=== PATIENT | male | born 1955 | race Caucasian/White ===

== ENCOUNTER → 2019-08-30 13:50 | Outpatient (CLI) | payer BC, SELFPAY ==
--- NOTE | ~2019-08-30 | XR_ITS ---
EXAMINATION: XR chest 2V EXAM DATE: 08/30/2019 13:59 INDICATION: Cough. TECHNIQUE: Frontal and lateral projections of the chest obtained and reviewed. Comparison is made to prior examination from 05/05/2014. FINDINGS: The lungs are clear. There are no pleural effusions. The cardiomediastinal silhouette is within normal limits. There is no pneumothorax suspected. The bones and soft tissues are unremarkab le. IMPRESSION: No acute cardiopulmonary findings. Reviewed, dictated and finalized at location B.
== END ==
PROVIDERS: PCP Internal Medicine; Visit Provider Internal Medicine
DX: R05 Cough (principal)
CPT/HCPCS: 71046

== ENCOUNTER 2020-05-19 12:54 | Outpatient (CLI) | payer BC, SELFPAY ==
--- NOTE | 2020-05-19 13:01 | ECHO_ITS ---
Patient Info Name: Adonay Carrera Age: 64 years : 1955 Gender: Male Ht: 70 in Wt: 230 lbs BSA: 2.30 m2 HR: 85 bpm BP: 159 / 97 mmHg Heart Rhythm: Sinus Rhythm Technical Quality: Good Exam Date: 05/19/2020 1:03 PM Exam Location: [facility] Patient Status: Outpatient Admit Date: 05/19/2020 Staff Ordering Physician: Florentino Parker DO Tapper Hand: Darnell Cotto RDCS Attending Provider: Florentino Parker DO Referring Physician: Keith APARICIO; Exam Type: CA echo doppler color flow Study Info Indications I34.0 - Nonrheumatic mitral (valve) insufficiency Complete two-dimensional, color flow and Doppler transthoracic echocardiogram is performed. History/Risk Factors Mitral valve insufficiency. Summary 1. Complete two-dimensional, color flow and Doppler transthoracic echocardiogram is performed. 2. Left ventricular chamber dimension is normal. 3. Left ventricular systolic function is normal, estimated at 55-60%. 4. There is moderately increased left ventricular wall thickness. 5. The left ventricular diastolic function is grade I diastolic dysfunction. 6. E/e' 12 is mildly elevated. 7. Left atrial chamber dimension is mildly enlarged. 8. There is severe aortic valve sclerosis. 9. There is mild to moderate aortic valve stenosis with a peak velocity of 229 cm/s, mean gradient of 12 mmHg, and aortic valve area of 1.6 cm2. 10. The mitral valve has moderately calcified annulus. 11. No pulmonary hypertension, estimated pulmonary arterial systolic pressure is 29 mmHg. 12. Small atheroma in posterior aortic root. Left Ventricle E/e' 12 is mildly elevated. Left ventricular chamber dimension is normal. Left ventricular systolic function is normal, estimated at 55-60%. There is moderately increased left ventricular wall thickness. The left ventricular diastolic function is grade I diastolic dysfunction. Right Ventricle Right ventricular chamber dimension is normal. Right ventricular systolic function is normal. Left Atria Left atrial chamber dimension is mildly enlarged. Right Atria Right atrial chamber dimension is normal. Aortic Valve The aortic valve is trileaflet. There is severe aortic valve sclerosis. There is mild to moderate aortic valve stenosis with a peak velocity of 229 cm/s, mean gradient of 12 mmHg, and aortic valve area of 1.6 cm2. There is no aortic valve regurgitation. Pulmonic Valve There is no pulmonic regurgitation. Mitral Valve The mitral valve has moderately calcified annulus. There is no mitral valve stenosis. There is no mitral valve regurgitation. Tricuspid Valve There is no tricuspid valve regurgitation. No pulmonary hypertension, estimated pulmonary arterial systolic pressure is 29 mmHg. Pericardium/Pleural There is no pericardial effusion. Inferior Vena Cava Normal inferior vena cava with >50% collapse upon inspiration consistent with normal right atrial pressure, 5 mmHg. Aorta Small atheroma in posterior aortic root. The aortic root size at the sinus of Valsalva is normal. Left Ventricular Outflow Tract Name Value Normal LVOT 2D LVOT Diameter 2.0 cm LVOT Doppler
== END 2020-05-19 12:55 | disposition home or self-care (01) ==
LOC: ANHCARD 12:55
PROVIDERS: PCP Internal Medicine; Visit Provider Internal Medicine
DX: I34.0 Nonrheumatic mitral (valve) insufficiency (principal)
CPT/HCPCS: 93306

== ENCOUNTER 2021-01-29 01:19 | Day surgery (SDC) | payer BC, SELFPAY ==
[2021-01-18 14:48] VITALS: BMI 33.8
[2021-01-29 08:57] VITALS: BP 127/79; PULSE 81; RESP 18; TEMP 36.3; O2SAT 96
[2021-01-29] MEDS: LACTATED RINGERS 1,000 ML 150 ML IV CONT (09:00)
--- NOTE | 2021-01-29 09:00 | WPDGICN ---
Assessment and Plan Assessment and plan (1) History of colon polyps: Code(s): Z86.010 - Personal history of colonic polyps Status: Acute Assessment and Plan: Patient has a history of adenomatous colon polyps. Plan is for surveillance colonoscopy at this time. Further recommendations will be given after endoscopy. GI Consult Note Consult date/time: 01/29/21 09:00 HPI: Adonay Carrera Jr. is a 65 year old male Presents for surveillance colonoscopy. Patient reports that his current weight appetite bowel movements are normal. He denies abdominal pain. He has had no bleeding. He has a prior colonoscopy 2009 that revealed an adenomatous colon polyp. Follow-up colonoscopy [address] Mondragon was unremarkable. Family history is noncontributory. Patient presents today for screening colonoscopy given his prior history. Review of Systems Review of Systems: All systems reviewed & are unremarkable except as noted in HPI and below PMFSH Family History Family History Father Cerebrovascular accident Mother Patient's mother is Social History Social History Smoking packs per day: 1.5 Smoking cigarettes per day: 30.0 Years smoked: 20 Smoking pack-years: 30.00 Smoking status: Former smoker Tobacco type: cigarettes Second hand tobacco smoke exposure: No Smoking end date: 06/19/11 Alcohol intake: current Drinks per week: 12 Living arrangements: with family Sexual Orientation (if Verbalized by the Patient): Straight or Heterosexual Spiritual care concerns: No Meds Home Medications and Allergies Home Medications Medication Instructions Recorded Confirmed Type blood-glucose meter #1 each 08/09/19 01/29/21 Rx blood sugar diagnostic #10 each 09/30/19 01/29/21 History fluticasone propionate 50 2 spray NASAL DAILY 09/30/19 01/29/21 History mcg/actuation nasal spray,suspension lancets #50 each 09/30/19 01/29/21 History empagliflozin 25 mg tablet 25 mg PO DAILY #90 tablet 06/01/20 01/29/21 Rx fluticasone 250 mcg-salmeterol 50 1 inh INHALATION BID #180 ea 06/29/20 01/29/21 Rx mcg/dose blistr powdr for inhalation simvastatin 20 mg tablet 20 mg PO DAILY #90 tablet 08/11/20 01/29/21 Rx lisinopril 20 mg tablet 20 mg PO DAILY #90 tablet 09/12/20 01/29/21 Rx ascorbic acid (vitamin C) 500 mg PO DAILY 01/18/21 01/29/21 History ibuprofen 400 mg PO Q6H PRN 01/18/21 01/29/21 History sodium,potassium,mag sulfates 17.5 See Rx Instructions PO .COMPLEX 01/25/21 01/29/21 Rx gram-3.13 gram-1.6 gram oral soln #354 ml metformin 1,000 mg tablet 1,000 mg PO BID #180 tablet 01/26/21 01/29/21 Rx Allergies Allergy/AdvReac Type Severity Reaction Status Date / Time No Known Allergies Allergy Verified 01/29/21 08:48 Vital Signs Vital Signs - 24 hr 01/29/21 08:57 Temperature 97.3 F L Pulse Rate 81 Respiratory Rate 18 Blood Pressure 127/79 Pulse Oximetry 96 Exam Narrative: Physical exam reveals patient be alert. Vital signs stable. HEENT exam is unremarkable. Patient is anicteric. Lungs are clear to auscultation and percussion. Heart is without murmur or extra sounds. Abdominal exam bowel sounds are present soft nontender with no organomegaly. Digital external rectal exam is normal.
--- NOTE | 2021-01-29 09:01 | WPDANESEPPF ---
Anes - Initial Pre Proc Eval Procedure: Operation Date: 01/29/21 09:15 Proposed Procedures p Screening Colonoscopy - Tom Hubbard MD Date/Time: 01/29/21 09:01 Surgeon: Tom Hubbard MD Pre Op Diagnosis: hx of colon polyps Patient Data Age: 65 Gender: M Height: 1.78 m Weight: 99.7 kg Last Vital Signs Temp 36.3 C L 01/29/21 08:57 Pulse 81 01/29/21 08:57 Resp 18 01/29/21 08:57 BP 127/79 01/29/21 08:57 Pulse Ox 96 01/29/21 08:57 Allergies Allergy/AdvReac Type Severity Reaction Status Date / Time No Known Allergies Allergy Verified 01/29/21 08:48 Home Medications Medication Instructions Recorded Confirmed Type blood-glucose meter #1 each 08/09/19 01/29/21 Rx blood sugar diagnostic #10 each 09/30/19 01/29/21 History fluticasone propionate 50 2 spray NASAL DAILY 09/30/19 01/29/21 History mcg/actuation nasal spray,suspension lancets #50 each 09/30/19 01/29/21 History empagliflozin 25 mg tablet 25 mg PO DAILY #90 tablet 06/01/20 01/29/21 Rx fluticasone 250 mcg-salmeterol 50 1 inh INHALATION BID #180 ea 06/29/20 01/29/21 Rx mcg/dose blistr powdr for inhalation simvastatin 20 mg tablet 20 mg PO DAILY #90 tablet 08/11/20 01/29/21 Rx lisinopril 20 mg tablet 20 mg PO DAILY #90 tablet 09/12/20 01/29/21 Rx ascorbic acid (vitamin C) 500 mg PO DAILY 01/18/21 01/29/21 History ibuprofen 400 mg PO Q6H PRN 01/18/21 01/29/21 History sodium,potassium,mag sulfates 17.5 See Rx Instructions PO .COMPLEX 01/25/21 01/29/21 Rx gram-3.13 gram-1.6 gram oral soln #354 ml metformin 1,000 mg tablet 1,000 mg PO BID #180 tablet 01/26/21 01/29/21 Rx Patient hx anesthesia problems: none Family hx anesthesia problems: none PMFSH Past Medical History Medical History (Updated 01/29/21 @ 09:10 by Marcelo Booker MD) Essential (primary) hypertension Hyperlipidemia Type 2 diabetes mellitus without complications Family History Family History Father Cerebrovascular accident Mother Patient's mother is Social History Social History Smoking packs per day: 1.5 Smoking cigarettes per day: 30.0 Years smoked: 20 Smoking pack-years: 30.00 Smoking status: Former smoker Tobacco type: cigarettes Second hand tobacco smoke exposure: No Smoking end date: 06/19/11 Alcohol intake: current Drinks per week: 12 Living arrangements: with family Sexual Orientation (if Verbalized by the Patient): Straight or Heterosexual Spiritual care concerns: No Anes - Eval Final PreProcedure Day of Procedure 01/29/21 09:01 Patient weight: obese Heart: regular rate and rhythm Lungs: clear to auscultation Airway: Mallampati scale class II Neurological: alert and oriented Last oral intake: >/= 8 hours ASA classification: III Emergent: no Anesthetic plan: proceed Anesthesia type and monitoring: general and standard monitoring Informed Consent: The patient's anesthetic plan and its attendant risks and benefits were discussed with the patient/family/POA. Questions were solicited and answers provided to the satisfaction of the patient/family/POA.
[2021-01-29 09:08] LABS: Glucose Point of Care 131 mg/dl (65-105)
[2021-01-29 09:56] VITALS: BP 128/82; PULSE 75; RESP 16; O2SAT 94
[2021-01-29 10:06] VITALS: BP 130/80; PULSE 78; RESP 24; O2SAT 95
[2021-01-29 10:16] VITALS: BP 137/88; PULSE 76; RESP 20; O2SAT 96
== END 2021-01-29 10:23 | disposition home or self-care (01) ==
PROVIDERS: PCP Internal Medicine; Visit Provider Internal Medicine Gastroenterology
PROC: 0DJD8ZZ Inspection of Lower Intestinal Tract, Via Natural or Artificial Opening Endoscopic (ICD-10-PCS; CPT 45378; principal; 2021-01-29 09:15)
DX: Z12.11 Encounter for screening for malignant neoplasm of colon (principal); D12.5 Benign neoplasm of sigmoid colon; K64.8 Other hemorrhoids; Z86.010 Personal history of colon polyps; Z87.891 Personal history of nicotine dependence
CPT/HCPCS: 45385; 82948; 88305; J7120

== ENCOUNTER 2021-03-20 13:58 | Inpatient (IN) | payer BC, SELFPAY ==
[2021-03-20] VITALS (9 sets, daily range): BP systolic 139–169; BP diastolic 81–97; PULSE 72–86; RESP 15–20; TEMP 36.6–36.9; O2SAT 95–98; BMI 30.5
--- NOTE | ~2021-03-20 | XR_ITS ---
EXAMINATION: XR chest 2V 03/20/2021 14:27 INDICATION: Chest pain PROCEDURE: 2 view chest COMPARISON: Comparison to multiple prior studies sequentially, with oldest reviewed study dated 08/14. FINDINGS: The lungs are clear. The cardiomediastinal silhouette is within normal limits. There are no pleural effusions. There is no pneumothorax suspected. IMPRESSION: 1: NO ACUTE CARDIOPULMONARY DISEASE. Reviewed, dictated and finalized at location A.
--- NOTE | 2021-03-20 13:55 | ECG_ITS ---
Measurements Intervals [place] Rate: 88 P: 58 IA: 139 QRS: -65 QRSD: 102 T: 84 QT: 376 QTc: 456 Interpretive Statements SINUS RHYTHM LEFT ANTERIOR FASCICULAR BLOCK LEFT VENTRICULAR HYPERTROPHY AND ST-T CHANGE ABNORMAL ECG Electronically Signed On 03-20-2021 14:39:46 CDT by Adolfo Banks D.O.
--- NOTE | 2021-03-20 13:59 | ED.CHESTPAIN ---
HPI - Chest Pain General Chief Complaint: Chest Pain Stated Complaint: cp Source: RN notes reviewed History of Present Illness HPI narrative: Patient presents emergency room from home via EMS for chest pain. Patient states pain began 30 minutes prior to arrival. Pain is located left side the chest described as a pressure radiate down his left arm. Patient states pain is now resolved following two nitro was given by EMS patient denies any previous cardiac history denies any fevers or chills abdominal pain nausea vomiting does note mild shortness of breath with the symptoms Related Data Home Medications Medication Instructions Recorded Confirmed blood sugar diagnostic #10 each 09/30/19 01/29/21 fluticasone propionate 50 2 spray NASAL DAILY 09/30/19 01/29/21 mcg/actuation nasal spray,suspension lancets #50 each 09/30/19 01/29/21 Allergies Allergy/AdvReac Type Severity Reaction Status Date / Time No Known Allergies Allergy Verified 03/20/21 14:03 Review of Systems Review of Systems: Gen.: Denies fevers or chills ENT: Denies congestion Respiratory: Reports shortness of breath with chest pain CV: See HPI GI: Denies abdominal pain nausea, emesis or diarrhea Musculoskeletal: Denies back pain or muscle pain Neuro: Denies numbness, tingling, weakness or focal weakness Skin: Denies rash Except as documented, all other systems reviewed and negative [facility] Past Medical History Medical History (Updated 03/20/21 @ 18:04 by Xander Ocampo DO) Aortic valve stenosis Echocardiogram on 05/19/2020 showed [id number] aortic valve stenosis with a valve area of 1.6 centimeters sq. Essential (primary) hypertension Former smoker History of skin cancer Hyperlipidemia Type 2 diabetes mellitus without complications Hemoglobin A1c was 6.4% on 10/15/2020. Surgical History Surgical History (Updated 03/20/21 @ 15:32 by Gill Almazan PA-C) History of arthroscopy of left knee History of colonoscopy with polypectomy History of sinus surgery History of tonsillectomy Family History Family History (Updated 03/20/21 @ 15:32 by Gill Almazan PA-C) Father Cerebrovascular accident Mother Patient's mother is Diabetes mellitus Heart disease Hypertension Social History Social History (Updated 03/20/21 @ 15:33 by Gill G. Gerling, PA-C) Social History: Surrogate decision maker: Elen Carrera, . Code status: Full code. Smoking packs per day: 1.5 Smoking cigarettes per day: 30.0 Years smoked: 20 Smoking pack-years: 30.00 Smoking status: Former smoker Tobacco type: cigarettes Second hand tobacco smoke exposure: No Smoking end date: 06/19/11 Alcohol intake: current Drinks per week: 12 Living arrangements: with family Occupation/Education: retired Exam Narrative: APPEARANCE: No acute distress, nontoxic, resting in bed EYES: EOMI HEENT: Normocephalic, atraumatic, OMM RESPIRATORY: No respiratory distress Clear to auscultation bilaterally with no rhonchi wheezing or rales. CARDIOVASCULAR: Regular rate and rhythm without murmurs rubs or gallops. ABDOMINAL: Soft, nontender, nondistended, no rebound or guarding MUSCULOSKELETAl: Moves all extremities. No clubbing, cyanosis or edema. NEURO: Awake and alert. Following commands, speech normal, no focal deficits SKIN:: Warm, dry. No rashes lesions or abrasions PSYCHIATRIC: Normal affect/mood, Course Course Emergency Course: Patient after initial evaluation did note some mild 1 out of 10 discomfort nitro paste was placed with resolution of pain a repeat EKG had showed no acute changes Called discussed with Dr. Pimentel presentation work-up agrees with consult at this time recommends no further anticoagulation at this time Discussed with JOSE Garland for Dr. Campbell presentation work-up agrees with admission at this time Discussed with patient and family results of workup and diagnosis. Discussed need for admis
[2021-03-20 14:19] LABS: Basophils Absolute Auto 0.1 K/mm3 (0.0-0.1); Basophils Percent Auto 1.1 % (0.2-1.2); Eosinophils Absolute Auto 0.6 K/mm3 (0-0.3); Eosinophils Percent Auto 9.8 % (0-4.4); Hematocrit 44.5 % (42.0-52.0); Hemoglobin 14.9 g/dL (14.0-18.0); Immature Granulocyte Absolute 0.02 K/mm3 (0.00-0.031); Immature Granulocyte Percent A 0.3 % (0-0.5); Lymphocytes Absolute Auto 2.27 K/mm3 (0.9-3.2); Lymphocytes Percent Auto 35.4 % (18.3-44.2); Mean Corpuscular HGB Conc 33.5 g/dl (32-36); Mean Corpuscular Hemoglobin 30.7 pg (26-34); Mean Corpuscular Volume 91.6 fl (80-100); Mean Platelet Volume 10.4 fl (7.4-10.4); Monocytes Absolute Auto 0.6 K/mm3 (0.1-0.6); Monocytes Percent Auto 9.7 % (2.6-8.5); Neutrophils Absolute Auto 2.8 K/mm3 (1.3-6.7); Neutrophils Percent Auto 43.7 % (45.5-73.1); Platelet Count Result 233 k/mm3 (150-375); Red Blood Count 4.86 M/mm3 (4.6-6.20); Red Cell Distribution Width 13.1 % (11.5-14.5); White Blood Count 6.4 K/mm3 (4.5-10.0)
[2021-03-20 14:29] LABS: Anion Gap 13 mmol/L (8-16); Blood Urea Nitrogen 17 mg/dL (9-20); Calcium 9.5 mg/dL (8.4-10.2); Carbon Dioxide 24 mmol/L (22-30); Chloride 106 mmol/L (98-107); Estimated CRCL calculation 99 ml/min; Estimated Glomerular Filt Rate > 60; Glucose 160 mg/dL (65-110); Potassium 4.1 mmol/L (3.4-5.0); Sodium 143 mmol/L (137-145)
[2021-03-20 14:41] LABS: INR 0.8; Prothrombin Time 10.8 Seconds (11.1-14.7); Troponin I 0.021 ng/mL (0.000-0.034)
[2021-03-20 14:42] LABS: Partial Thromboplastin Time 27.3 SECONDS (22.3-36.8)
--- NOTE | 2021-03-20 14:44 | ECG_ITS ---
Measurements Intervals [place] Rate: 81 P: 52 ND: 132 QRS: -62 QRSD: 110 T: 84 QT: 380 QTc: 443 Interpretive Statements SINUS RHYTHM LEFT ANTERIOR FASCICULAR BLOCK LEFT VENTRICULAR HYPERTROPHY AND ST-T CHANGE BASELINE ARTIFACT- I, II, AVR, V1, V3-V5 ABNORMAL ECG Electronically Signed On 03-20-2021 15:03:18 CDT by Adolfo Banks D.O.
--- NOTE | 2021-03-20 15:45 | PM.IMHP ---
H&P: HPI History of Present Illness Date/Time: 03/20/21 15:45 Chief Complaint: Chest pain. Narrative: This is a pleasant 65-year-old male with hypertension, dyslipidemia, aortic valve stenosis, and type 2 diabetes mellitus who presented to the emergency department earlier today via EMS from home for evaluation of chest pain. 30 minutes prior to arrival he developed left-sided anterolateral chest pressure radiating to his left arm, neck, and jaw associated with pretty profuse sweats. He received nitroglycerin x2 per EMS with resolution of the discomfort. He was not doing anything in particular when the discomfort occurred, having just leisurely walked out to the garage to throw something in the recycling bin. He has a history of chest pain with pericarditis many years ago but he has never had anything exactly like this before. He denies associated nausea, vomiting, and shortness of breath. The pain is not pleuritic. No syncope or near syncope. Review of Systems Review of Systems: Twelve systems were reviewed. No fever or chills. He had quite a bit of sweating with his chest pressure today as above. No recent cold or flu symptoms. He denies abdominal pain and epigastric pain. No nausea or vomiting. His diabetes is pretty well controlled however he has noticed that his glucose has been up a little bit more recently than what he typically runs. No blurry vision, polydipsia, or polyuria. Except as documented, all other systems were reviewed and are negative. [facility] Past Medical History Medical History Aortic valve stenosis Echocardiogram on 05/19/2020 showed [id number] aortic valve stenosis with a valve area of 1.6 centimeters sq. Essential (primary) hypertension Former smoker History of skin cancer Hyperlipidemia Type 2 diabetes mellitus without complications Hemoglobin A1c was 6.4% on 10/15/2020. Surgical History Surgical History (Updated 03/20/21 @ 22:59 by Gill Almazan PA-C) History of arthroscopy of both knees History of cataract extraction with lens replacement History of colonoscopy with polypectomy History of sinus surgery History of tonsillectomy Family History Family History Father Cerebrovascular accident Mother Patient's mother is Diabetes mellitus Heart disease Hypertension Social History Social History (Updated 03/20/21 @ 22:58 by Gill Almazan PA-C) Social History: Surrogate decision maker: Kellie Carrera, . Code status: Full code. Smoking packs per day: 2.5 Smoking cigarettes per day: 50.0 Years smoked: 30 Smoking pack-years: 75.00 Smoking status: Former smoker Tobacco type: cigarettes Second hand tobacco smoke exposure: No Smoking end date: 03/20/21 Alcohol intake: current Drinks per week: 12 Substance use: never Living arrangements: with family Occupation/Education: [employer] Home Medications and Allergies Home Medications Medication Instructions Recorded Confirmed Type blood-glucose meter #1 each 08/09/19 03/20/21 Rx blood sugar diagnostic #10 each 09/30/19 03/20/21 History fluticasone propionate 50 2 spray NASAL DAILY 09/30/19 03/20/21 History mcg/actuation nasal spray,suspension lancets #50 each 09/30/19 03/20/21 History empagliflozin 25 mg tablet 25 mg PO DAILY #90 tablet 06/01/20 03/20/21 Rx fluticasone 250 mcg-salmeterol 50 1 inh INHALATION BID #180 ea 06/29/20 03/20/21 Rx mcg/dose blistr powdr for inhalation metformin 1,000 mg tablet 1,000 mg PO BID #180 tablet 01/26/21 03/20/21 Rx simvastatin 20 mg tablet 20 mg PO DAILY #90 tablet 02/04/21 03/20/21 Rx lisinopril 20 mg tablet 20 mg PO DAILY #90 tablet 03/07/21 03/20/21 Rx Allergies Allergy/AdvReac Type Severity Reaction Status Date / Time No Known Allergies Allergy Verified 03/20/21 14:03 Vital Signs Vital Signs - 24 hr
[2021-03-20] MEDS: NITROGLYCERIN OINTMENT 1 INCH DOSE 0.5 INCH TRANSDERM (15:53)
[2021-03-20 17:32] LABS: Troponin I 0.066 ng/mL (0.000-0.034)
--- NOTE | 2021-03-20 18:08 | PC.NURSE ---
This patient, Adonay Carrera Jr., was admitted to IMU Room 232-01. Patient/family oriented to hospital policies and general routines including ID bracelet, bed and alarms, visiting hours, pain management, procedures, bathroom and other care routines, personal items, smoking policy, room service/diet, and visiting hours. Information on how to activate the Rapid Response Team has been discussed. Patient/Family are encouraged to report perceived risks to care and to ask questions if they do not understand what they are told or what they should do.
[2021-03-20] MEDS: HEPARIN SOD/D5W 100 UNITS/ML 25,000 UNITS/250 ML BAG 10 UNITS IV CONT (18:25)
[2021-03-20 18:34] LABS: Glucose Point of Care 102 mg/dl (65-105)
[2021-03-20] MEDS: METOPROLOL TARTRATE 25 MG TABLET PO (18:37)
[2021-03-20] MEDS: HEPARIN SODIUM 5,000 UNITS/ML VIAL 4000 UNITS IV PUSH (18:38)
[2021-03-20 21:05] LABS: Troponin I 0.583 ng/mL (0.000-0.034)
[2021-03-20 21:46] LABS: Glucose Point of Care 218 mg/dl (65-105)
[2021-03-20 23:24] LABS: Hemoglobin A1C 6.5 % (<5.7)
[2021-03-21] VITALS (18 sets, daily range): BP systolic 145–172; BP diastolic 78–97; PULSE 63–82; RESP 16–22; TEMP 35.5–37.1; O2SAT 94–97
[2021-03-21 00:45] LABS: Partial Thromboplastin Time 38.7 SECONDS (22.3-36.8)
[2021-03-21] MEDS: HEPARIN SODIUM 5,000 UNITS/ML VIAL 4000 UNITS IV PUSH ×2 (01:09→14:08)
[2021-03-21] MEDS: METOPROLOL TARTRATE 25 MG TABLET PO ×3 (05:04→20:37)
[2021-03-21] MEDS: ACETAMINOPHEN 500 MG TABLET 1000 MG PO (05:05)
[2021-03-21 07:51] LABS: Basophils Absolute Auto 0.1 K/mm3 (0.0-0.1); Eosinophils Absolute Auto 0.7 K/mm3 (0-0.3); Eosinophils Percent Auto 10.3 % (0-4.4); Hematocrit 45.3 % (42.0-52.0); Immature Granulocyte Absolute 0.02 K/mm3 (0.00-0.031); Immature Granulocyte Percent A 0.3 % (0-0.5); Lymphocytes Absolute Auto 3.08 K/mm3 (0.9-3.2); Mean Corpuscular HGB Conc 33.1 g/dl (32-36); Mean Corpuscular Hemoglobin 30.7 pg (26-34); Mean Corpuscular Volume 92.8 fl (80-100); Mean Platelet Volume 10.5 fl (7.4-10.4); Monocytes Absolute Auto 0.6 K/mm3 (0.1-0.6); Monocytes Percent Auto 8.5 % (2.6-8.5); Neutrophils Absolute Auto 2.6 K/mm3 (1.3-6.7); Neutrophils Percent Auto 36.9 % (45.5-73.1); Platelet Count Result 221 k/mm3 (150-375); Red Blood Count 4.88 M/mm3 (4.6-6.20); Red Cell Distribution Width 13.2 % (11.5-14.5); White Blood Count 7.2 K/mm3 (4.5-10.0)
[2021-03-21 08:05] LABS: Partial Thromboplastin Time 47.9 SECONDS (22.3-36.8)
[2021-03-21 08:07] LABS: Alanine Aminotransferase 37 U/L (4-50); Albumin Level 4.9 g/dL (3.5-5.1); Alkaline Phosphatase 62 U/L (38-126); Anion Gap 8 mmol/L (8-16); Aspartate Amino Transferase 39 U/L (17-59); Bilirubin,Total 0.5 mg/dL (0.2-1.3); Blood Urea Nitrogen 17 mg/dL (9-20); Carbon Dioxide 27 mmol/L (22-30); Chloride 105 mmol/L (98-107); Estimated CRCL calculation 110 ml/min; Estimated Glomerular Filt Rate > 60; Glucose 134 mg/dL (65-110); Magnesium 2.2 mg/dL (1.6-2.3); Potassium 4.1 mmol/L (3.4-5.0); Sodium 140 mmol/L (137-145)
--- NOTE | 2021-03-21 08:26 | PM.IMPN ---
Progress Note: A&P Assessment and Plan (1) Acute non-ST elevation myocardial infarction (NSTEMI): Code(s): I21.4 - Non-ST elevation (NSTEMI) myocardial infarction Status: Acute Assessment and Plan: Pain and troponins consistent with NSTEMI -CP has resolved -EKG reviewed -will draw troponin and BNP this morning -continue heparin drip, aspirin and simvastatin -cardiology consulted, appreciate their recommendations -check lipid panel in the morning, ldl high at 145 back in september. May need to increase simvastatin. -he is high risk with history of diabetes and past history of smoking (2) Chest pain: Code(s): R07.9 - Chest pain, unspecified Status: Acute Assessment and Plan: As above -resolved (3) Essential (primary) hypertension: Code(s): I10 - Essential (primary) hypertension Status: Chronic Assessment and Plan: Last blood pressure 146/90 -continue metoprolol and lisinopril (4) Hyperlipidemia: Code(s): E78.5 - Hyperlipidemia, unspecified Status: Chronic Assessment and Plan: Check lipid panel in the morning -continue simvastatin (5) Aortic valve stenosis: Code(s): I35.0 - Nonrheumatic aortic (valve) stenosis Status: Acute Assessment and Plan: Last echo May 2020 showed aortic stenosis that was mild to moderate with an valve area of 1.6 -this is followed by his primary care physician (6) Type 2 diabetes mellitus without complications: Code(s): E11.9 - Type 2 diabetes mellitus without complications Status: Chronic Assessment and Plan: Last glucose 134 -patient takes Jardiance and metformin at home -hold oral medications. Continue SSI -add diabetic diet Time Spent With Patient Time with patient: 25 - 35 minutes Subjective Date/time seen: 03/21/21 08:26 Interval history: Pt is a 65-year-old male here for chest pain found to have NSTEMI. Patient was seen today and states his chest pain has resolved. He did have some arm pain that was similar to when he had his chest pain outpatient last night but that has resolved with a nitro patch. He denies shortness of breath, diarrhea, constipation, fevers, chills, lightheadedness, jaw pain and he is able to lay flat. He does not have flare worker. His primary care follows his aortic stenosis. He has had pericarditis in the past but cannot remember who treated him for that. He has no history of SC. He quit smoking 8-10 years ago. He says he is not had any chest pain like this in the past. He was just simply walking from his house to his garage to recycle magazine to when the chest pain occurred. It improved with nitro and rest in the ambulance. He is usually fairly active. Review of Systems Review of Systems: All systems reviewed & are unremarkable except as noted in HPI and below Exam Narrative: General: Well developed well nourished patient in NAD HEENT: normocephalic Neck: supple Neuro: Alert and oriented x4 CV:RRR. Telemetry shows normal sinus rhythm rate of 68. Occasional PVCs Resp:CTA Abd: Soft, non distended. No pain to palpation. Positive bowel sounds Extremities: No swelling, erythema, or pain to palpation. Objective Data Vital Signs Vital Signs: Vital Signs - 24 hr 03/20/21 13:55 03/20/21 15:21 03/20/21 17:40 Temperature 98.5 F Pulse Rate 86 81 85 Respiratory Rate 18 20 17 Blood Pressure 146/81 H 162/88 H 139/89 Pulse Oximetry 96 97 98 03/20/21 18:00 03/20/21 18:02 03/20/21 18:37 Temperature 97.9 F Pulse Rate 82 83 81 Respiratory Rate 18 Blood Pressure 169/97 H Pulse Oximetry 95 03/20/21 19:55 03/20/21 20:00 03/20/21 21:45 Temperature 97.8 F Pulse Rate 72 83 75 Respiratory Rate 15 Blood Pressure 140/82 Pulse Oximetry 95 95 03/21/21 00:00 03/21/21 04:00 03/21/21 05:04 Temperature 98.7 F 97 F L Pulse Rate 76 68 80 Respiratory Rate 16 Blood Pressure 165
[2021-03-21] MEDS: FLUTICASONE PROPIONATE 0.05% NA SPR 16 GM BTL (*BKC) 2 SPRAY NASAL (08:32)
[2021-03-21] MEDS: ASPIRIN 81 MG ENTERIC TABLET PO (08:33)
[2021-03-21] MEDS: lisinopriL 20 MG TABLET PO (08:34)
[2021-03-21] MEDS: SIMVASTATIN 20 MG TABLET PO (08:34)
[2021-03-21 08:40] LABS: NT Pro B Type Natriuretic Pept 230 pg/mL (5-100)
[2021-03-21 08:45] LABS: Glucose Point of Care 137 mg/dl (65-105)
--- NOTE | 2021-03-21 12:38 | PM.CNCAR ---
Assessment and Plan Assessment and plan (1) Acute non-ST elevation myocardial infarction (NSTEMI): Code(s): I21.4 - Non-ST elevation (NSTEMI) myocardial infarction Status: Acute Assessment and Plan: Patient with multiple risk factors admitted with sudden onset chest pain secondary to non-STEMI. Responded to nitroglycerin. No further episodes while on heparin Continue aspirin, lisinopril; add metoprolol Recommend cardiac catheterization with possible PCI tomorrow. Reviewed possible risks and complications with patient including breathing problems, bleeding problems, blood vessel problems, unanticipated surgery, allergic reactions, kidney problems, CVA, NH, and among others. Discussed possibility of stenting and possible need for DAPT. Discussed the possibility that if DAPT is interrupted stent thrombosis can occur resulting in heart attack and . Patient is aware that we may find disease that cannot be addressed percutaneously and may need open heart surgery. We may find disease that is best treated with medical therapy. Patient understands risks and desires to proceed. (2) Essential (primary) hypertension: Code(s): I10 - Essential (primary) hypertension Status: Chronic Assessment and Plan: Blood pressure not at goal. Adding metoprolol (3) Hyperlipidemia: Code(s): E78.5 - Hyperlipidemia, unspecified Status: Chronic Assessment and Plan: Takes moderate dose statin, simvastatin 20 mg daily, yet still had this event. Lipid panel pending Will change to high-dose atorvastatin 80 mg daily. (4) Type 2 diabetes mellitus without complications: Code(s): E11.9 - Type 2 diabetes mellitus without complications Status: Chronic Assessment and Plan: A1c was 6.5. (5) Aortic valve stenosis: Code(s): I35.0 - Nonrheumatic aortic (valve) stenosis Status: Acute Assessment and Plan: Mild aortic stenosis by echo 05/2020 Follow-up Echo tmr, in case pt has MV CAD and needs CABG. History of Present Illness History of Present Illness Consult date/time: 03/21/21 12:38 Requesting physician: Gill Almazan PA-C Consult reason: chest pain Reason For Visit: chest pain Narrative: Mr. Adonay Carrera is a 65-year-old male whom I was asked to see at the request of hospitalist Gill Almazan for my advice and opinion regarding his non-STEMI in consultation. He has a history of hypertension, diabetes and hyperlipidemia. The patient was is normal state of health yesterday until he developed sudden onset of left-sided chest sharp discomfort that radiated down his left arm to his elbow, neck and jaw associated with profuse diaphoresis while throwing some magazines in the recycling bin. He received nitroglycerin x2 by EMS with relief. He has had no further chest discomfort. He was started on heparin in the emergency room after discussion with Dr. Ocampo. The patient has no history problems. He did have pericarditis 20 years ago and had a negative cardiac catheterization at that time. He has had some minor epistaxis but no significant bleeding problems and is not anticipating any surgeries in the next several months. Has has back injections. Review of Systems Constitutional: Constitutional: Denies fatigue and Denies weakness Eyes: Eyes: Reports no additional eye complaints ENT: Reports epistaxis Cardiovascular: Cardiovascular: Reports chest pain, Reports diaphoresis, Denies leg edema and Denies lightheadedness Respiratory: Respiratory: Denies hemoptysis, Denies dyspnea and Denies dyspnea on exertion Gastrointestinal: Gastrointestinal: Denies abdominal pain and Denies hematochezia Genitourinary: Genitourinary: Denies hematuria Musculoskeletal: Musculoskeletal: Reports back pain and Reports arthralgias Integumentary/Breasts: Skin/B
[2021-03-21 13:06] LABS: Glucose Point of Care 119 mg/dl (65-105)
[2021-03-21 14:03] LABS: Partial Thromboplastin Time 45.5 SECONDS (22.3-36.8)
[2021-03-21] MEDS: HEPARIN SOD/D5W 100 UNITS/ML 25,000 UNITS/250 ML BAG 16 UNITS IV CONT (15:35)
[2021-03-21 17:18] LABS: Glucose Point of Care 128 mg/dl (65-105)
[2021-03-21 20:13] LABS: Glucose Point of Care 192 mg/dl (65-105)
[2021-03-21] MEDS: FLUTICASONE/SALMETEROL 115-21 MCG INHALER 1 PUFF 2 PUFF INHALATION (20:22)
[2021-03-21 20:40] LABS: Partial Thromboplastin Time 66.3 SECONDS (22.3-36.8)
[2021-03-21] MEDS: HEPARIN SODIUM 5,000 UNITS/ML VIAL 3500 UNITS IV PUSH (20:52)
[2021-03-22] VITALS (16 sets, daily range): BP systolic 131–154; BP diastolic 71–96; PULSE 62–89; RESP 14–20; TEMP 36.2–36.9; O2SAT 94–98
[2021-03-22 03:50] LABS: Partial Thromboplastin Time 80.9 SECONDS (22.3-36.8)
[2021-03-22 03:52] LABS: Cholesterol 206 mg/dL (0-200); HDL Direct 35 mg/dL; Magnesium 2.2 mg/dL (1.6-2.3); Triglycerides 333 mg/dL (<150)
[2021-03-22 04:02] LABS: LDL Cholesterol Direct 125 mg/dL
[2021-03-22] MEDS: METOPROLOL TARTRATE 25 MG TABLET PO ×2 (06:00→15:36)
[2021-03-22] MEDS: ATORVASTATIN 40 MG TABLET 80 MG PO (08:47)
[2021-03-22] MEDS: lisinopriL 20 MG TABLET PO (08:47)
[2021-03-22] MEDS: ASPIRIN 81 MG ENTERIC TABLET PO (08:47)
[2021-03-22] MEDS: FLUTICASONE PROPIONATE 0.05% NA SPR 16 GM BTL (*BKC) 2 SPRAY NASAL (08:47)
[2021-03-22 09:16] LABS: Glucose Point of Care 156 mg/dl (65-105)
[2021-03-22] MEDS: HEPARIN SOD/D5W 100 UNITS/ML 25,000 UNITS/250 ML BAG 18 UNITS IV CONT (09:24)
[2021-03-22] MEDS: FLUTICASONE/SALMETEROL 115-21 MCG INHALER 1 PUFF 2 PUFF INHALATION (10:24)
--- NOTE | 2021-03-22 10:32 | PM.IMPN ---
Progress Note: A&P Assessment and Plan (1) Acute non-ST elevation myocardial infarction (NSTEMI): Code(s): I21.4 - Non-ST elevation (NSTEMI) myocardial infarction Status: Acute Assessment and Plan: Pain and troponins consistent with NSTEMI -CP has resolved -EKG reviewed -continue heparin drip, aspirin and simvastatin -cardiology consulted, plan for cath today -statin increased, lipid panel noted. (2) Chest pain: Code(s): R07.9 - Chest pain, unspecified Status: Acute Assessment and Plan: As above -resolved (3) Essential (primary) hypertension: Code(s): I10 - Essential (primary) hypertension Status: Chronic Assessment and Plan: Last blood pressure 152/72 -continue metoprolol and lisinopril (4) Hyperlipidemia: Code(s): E78.5 - Hyperlipidemia, unspecified Status: Chronic Assessment and Plan: continue simvastatin at increased dose (5) Aortic valve stenosis: Code(s): I35.0 - Nonrheumatic aortic (valve) stenosis Status: Acute Assessment and Plan: Last echo May 2020 showed aortic stenosis that was mild to moderate with an valve area of 1.6 -this is followed by his primary care physician (6) Type 2 diabetes mellitus without complications: Code(s): E11.9 - Type 2 diabetes mellitus without complications Status: Chronic Assessment and Plan: Last glucose 156 -patient takes Jardiance and metformin at home -hold oral medications. Continue SSI Subjective Date/time seen: 03/22/21 10:32 Interval history: Pt is a 65-year-old male here for chest pain found to have NSTEMI. Patient was seen today and states his chest pain has resolved. He denies shortness of breath, diarrhea, constipation, fevers, chills, lightheadedness, jaw pain and he is able to lay flat. He says if he doesn't get his advir inhaler at the right times he does cough. He also would like his allergy medication. Exam Narrative: General: Well developed well nourished patient in NAD HEENT: normocephalic Neck: supple Neuro: Alert and oriented x4 CV:RRR. Telemetry shows normal sinus rhythm rate of 68. Occasional PVCs Resp:CTA Abd: Soft, non distended. No pain to palpation. Positive bowel sounds Extremities: No swelling, erythema, or pain to palpation. Objective Data Vital Signs Vital Signs: Vital Signs - 24 hr 03/21/21 12:00 03/21/21 13:38 03/21/21 14:00 Temperature 97.5 F L Pulse Rate 63 65 78 Respiratory Rate 20 Blood Pressure 150/90 H Pulse Oximetry 94 03/21/21 14:11 03/21/21 16:00 03/21/21 17:28 Temperature 97.9 F Pulse Rate 82 68 66 Respiratory Rate 18 Blood Pressure 172/94 H Pulse Oximetry 96 03/21/21 18:00 03/21/21 19:33 03/21/21 20:00 Temperature 97.0 F L Pulse Rate 72 71 70 Respiratory Rate 20 20 Blood Pressure 153/86 H Pulse Oximetry 96 96 03/21/21 20:37 03/21/21 21:53 03/21/21 23:12 Temperature 97.9 F Pulse Rate 77 66 68 Respiratory Rate 20 Blood Pressure 149/78 H Pulse Oximetry 97 03/22/21 02:00 03/22/21 03:29 03/22/21 06:00 Temperature 97.2 F L Pulse Rate 64 70 62 Respiratory Rate 20 Blood Pressure 131/96 H Pulse Oximetry 96 03/22/21 08:00 Temperature 98.1 F Pulse Rate 66 Respiratory Rate 18 Blood Pressure 152/72 H Pulse Oximetry 96 Intake/Output Intake/Output: Intake & Output 03/19/21 03/20/21 03/21/21 03/22/21 23:59 23:59 23:59 23:59 Intake Total 240 1330 700 Output Total 300 Balance 240 1030 700 Meds/Results Medications: Active Medications Generic Name Dose Route Start Last Admin Trade Name Freq PRN Reason Stop Dose Admin Aspirin 81 mg 03/21/21 09:00 03/22/21 08:47 Aspirin 81 Mg Enteric Tablet PO 81 mg QAM [facility] Administration Atorvastatin Calcium 80 mg 03/22/21 09:00 03/22/21 08:47 Atorvastatin 40 Mg Tablet PO 80 mg DAILY [facility] Administration Dextrose
[2021-03-22 10:53] LABS: Partial Thromboplastin Time 58.7 SECONDS (22.3-36.8)
[2021-03-22] MEDS: HEPARIN SODIUM 5,000 UNITS/ML VIAL 3500 UNITS IV PUSH (11:23)
[2021-03-22] MEDS: SODIUM CHLORIDE 0.9% IV 500 ML 100 ML IV CONT (12:22)
--- NOTE | 2021-03-22 12:43 | PC.NURSE ---
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
--- NOTE | 2021-03-22 12:52 | P.PCNCC_ITS ---
Cardiac Cath Procedure Note Date of procedure:: 03/22/21 Performing physician:: Priscilla Smith MD dateOf service 03/22/2021 Indication:: non ST-elevation myocardial infarction Brief clinical history:: 65-year-old patient with history of diabetes, hyperlipidemia presents with chest pain elevated troponins. He is here for coronary angiogram to rule out coronary artery disease. Echocardiogram shows ejection fraction 55% with inferior wall hypokinesis a mild aortic stenosis Procedure Procedure performed:: 1-Moderate sedation that started at1:04 p.m. and ended at 1:30 p.m.using 5mg of Versed and 125mcg fentanyl. The registered nurse was leyla carias. 2-Selective left and right coronary angiogram. 4-Right common femoral arterial angiogram. 5-Deployment of 6 Tristanian Angio-Seal. Sedation/Medication given:: Moderate sedation. Access site:: Right common femoral artery. Estimated blood loss:: 10cc Procedure note:: After informed consent patient was brought in to laborer bituminous paving with the was draped and prepped in usual manner. Moderate sedation was given and the right groin was infiltrated using 1% lidocaine. Five Tristanian sheath was obtained using micropuncture needle and the modified Seldinger technique. Selective left coronary angiogram was done using JL4 catheter with the tip of the catheter placed in the left main coronary artery. after that we took JR4 catheter however it kept selecting the conus branch. Then we used WRP to engage the RCA with dampening and selective right coronary angiogram was done. After that 5 Tristanian pigtail catheter was Attempted to advance across the aortic valve without success Right common femoral arterial angiogram was done. Findings:: 1- left coronary artery is a large artery that divides into large LAD, large circumflex artery. Left main has minimal irregularities. 2- left anterior descending artery is a large artery that runs and wraps around the apex. Has calcification proximally. Large diagonal 1 branch that has ostial 20% and large diagonal 2 branch without significant disease. 3- leftcircumflex artery is a large artery The codominant. Ostial 20%. Proximal calcification. Distal left circumflex artery before bifurcation 50- 60%. 4- right coronary artery is Large artery diffusely calcified with ostial disease about 90%. Mid lesion 90%. 6- opening arterial pressure was 150/80 and closing pressure was 130/80 7- right femoral artery angiogram shows no significant disease in the right common femoral artery. minimal irregularities Conclusion:: high-grade stenosis ostial RCA and mid RCA had diffuse calcified. Assessment and Plan Additional Plan Will transfer to [facility] for consideration for high-risk intervention on the RCA with using plaque modification with either Rotablator, s hockwave.
--- NOTE | 2021-03-22 12:52 | WPDHPUPDATE1 ---
History and Physical Update Update Date/Time: 03/22/21 12:52 History and Physical has been reviewed, including an updated exam of the patient. There are NO changes in the patient's condition. Risks, benefits, and alternatives have been discussed and questions answered. Patient agrees to proceed with procedure.
--- NOTE | 2021-03-22 12:52 | WPDMODSED ---
Moderate Sedation Note-Pt Data Patient Data Allergies Allergy/AdvReac Type Severity Reaction Status Date / Time No Known Allergies Allergy Verified 03/20/21 14:03 Home Medications Medication Instructions Recorded Confirmed Type blood-glucose meter #1 each 08/09/19 03/20/21 Rx blood sugar diagnostic #10 each 09/30/19 03/20/21 History fluticasone propionate 50 2 spray NASAL DAILY 09/30/19 03/20/21 History mcg/actuation nasal spray,suspension lancets #50 each 09/30/19 03/20/21 History empagliflozin 25 mg tablet 25 mg PO DAILY #90 tablet 06/01/20 03/20/21 Rx fluticasone 250 mcg-salmeterol 50 1 inh INHALATION BID #180 ea 06/29/20 03/20/21 Rx mcg/dose blistr powdr for inhalation metformin 1,000 mg tablet 1,000 mg PO BID #180 tablet 01/26/21 03/20/21 Rx simvastatin 20 mg tablet 20 mg PO DAILY #90 tablet 02/04/21 03/20/21 Rx lisinopril 20 mg tablet 20 mg PO DAILY #90 tablet 03/07/21 03/20/21 Rx Current Medications: Active Medications Aspirin (Aspirin 81 Mg Enteric Tablet) 81 mg PO QAM [facility] Last Admin: 03/22/21 08:47 Dose: 81 mg Documented by: Atorvastatin Calcium (Atorvastatin 40 Mg Tablet) 80 mg PO DAILY [facility] Last Admin: 03/22/21 08:47 Dose: 80 mg Documented by: Dextrose (Dextrose 50% 25 Gm/50 Ml Syringe) 12.5 gm IV PUSH PRN PRN; Protocol PRN Reason: Hypoglycemia Fluticasone Propionate (Fluticasone Propionate 0.05% Na Spr 16 Gm Btl (*Bkc)) 2 spray NASAL DAILY [facility] Last Admin: 03/22/21 08:47 Dose: 2 spray Documented by: Glucagon (Glucagon For Inj 1 Mg Vial) 1 mg IM PRN PRN; Protocol PRN Reason: Hypoglycemia Glucose (Glucose Oral Gel 15 Gm Of Glucse In 37.5 Gm Tube) 15 gm PO PRN PRN; Protocol PRN Reason: Hypoglycemia Heparin Sodium (Porcine) (Heparin Sodium 5,000 Units/Ml Vial) 4,000 units IV PUSH PRN PRN PRN Reason: aPTT less than 55 seconds Last Admin: 03/21/21 14:08 Dose: 4,000 units Documented by: Heparin Sodium (Porcine) (Heparin Sodium 5,000 Units/Ml Vial) 3,500 units IV PUSH PRN PRN PRN Reason: aPTT 55 - 70 seconds Last Admin: 03/22/21 11:23 Dose: 3,500 units Documented by: Heparin Sodium/Dextrose (Heparin Sodium/D5w 100 Units/Ml) 25,000 units in 250 mls @ 20 mls/hr IV CONT .[id number] [facility]; Protocol Last Titration: 03/22/21 11:23 Dose: 2,000 units/hr, 20 mls/hr Documented by: Dextrose (Dextrose 5% 1,000 Ml) 1,000 mls @ 100 mls/hr IVPB PRN PRN; Protocol PRN Reason: Hypoglycemia Sodium Chloride (Normal Saline Iv) 500 mls @ 100 mls/hr IV CONT .Q5H [facility] Last Admin: 03/22/21 12:22 Dose: 100 mls/hr Documented by: Insulin Aspart (Insulin Aspart (*Bkc) 100 Units/Ml) 2 - 5 units SUB-Q TIDWM [facility]; Protocol Last Admin: 03/22/21 12:08 Dose: Not Given Documented by: Lisinopril (Lisinopril 20 Mg Tablet) 20 mg PO DAILY [facility] Last Admin: 03/22/21 08:47 Dose: 20 mg Documented by: Loratadine (Loratadine 10 Mg Tablet) 10 mg PO QAM [facility] Metoprolol Tartrate (Metoprolol Tartrate 25 Mg Tablet) 25 mg PO Q8HR [facility] Last Admin: 03/22/21 06:00 Dose: 25 mg Documented by: Fluticasone/Salmeterol (Fluticasone/Salmeterol 115-21 Mcg Inhaler 1 Puff) 2 puff INHALATION Q12HRT [facility] Last Admin: 03/22/21 10:24 Dose: 2 puff Documented by: Sedation/Anesthesia: No previous sedation/anesthesia problems (including family history). [facility] Past Medical History Medical History Aortic valve stenosis Echocardiogram on 05/19/2020 showed [id number] aortic valve stenosis with a valve area of 1.6 centimeters sq. Essential (primary) hypertension Former smoker History of skin cancer Hyperlipidemia Type 2 diabetes mellitus without complications Hemoglobin A1c was 6.4% on 10/15/2020. Surgical History Surgical History History of arthroscopy of both knees History of cataract extraction with lens replacement History of colonoscopy with polypectomy History of sinus surgery History of tonsil
[2021-03-22 12:56] LABS: Glucose Point of Care 137 mg/dl (65-105)
--- NOTE | 2021-03-22 13:45 | ECHO_ITS ---
Patient Info Name: Adonay Carrera Age: 65 years : 1955 Gender: Male Ht: 71 in Wt: 220 lbs BSA: 2.26 m2 HR: 66 bpm BP: 131 / 96 mmHg Heart Rhythm: Sinus Rhythm Exam Date: 03/22/2021 10:27 AM Exam Location: [facility] Pulmonary Patient Status: Inpatient Admit Date: 03/21/2021 Staff Ordering Physician: Cathy Pimentel MD [place] Operator: Dane Brink RDCS, RT Attending Provider: Rosie Armenta PA-C Referring Physician: Margarito TAYLOR; Exam Type: CA echo doppler color flow Study Info Indications I35.0 - Nonrheumatic aortic (valve) stenosis Complete two-dimensional, color flow and Doppler transthoracic echocardiogram is performed. Strain analysis performed. Summary 1. Complete two-dimensional, color flow and Doppler transthoracic echocardiogram is performed. 2. Strain analysis performed. 3. Left ventricular chamber dimension is normal. 4. Left ventricular systolic function is normal, estimated at 55-60%. 5. There is moderately increased left ventricular wall thickness. 6. The left ventricular diastolic function is grade I diastolic dysfunction. 7. Global longitudinal strain is abnormal at -11 %. 8. The inferior wall is hypokinetic. 9. Left atrial chamber dimension is mildly enlarged. 10. There is mild to moderate aortic valve stenosis with a peak velocity of 254 cm/s, mean gradient of 15 mmHg, and aortic valve area of 1.7 cm2. 11. There is severe aortic valve calcification. 12. There is mild mitral valve regurgitation. 13. There is mild tricuspid valve regurgitation. Left Ventricle Left ventricular chamber dimension is normal. Left ventricular systolic function is normal, estimated at 55-60%. There is moderately increased left ventricular wall thickness. The left ventricular diastolic function is grade I diastolic dysfunction. Global longitudinal strain is abnormal at -11 %. The inferior wall is hypokinetic. All other merchant appear normal. Right Ventricle Right ventricular chamber dimension is normal. Right ventricular systolic function is normal. Left Atria Left atrial chamber dimension is mildly enlarged. Right Atria Right atrial chamber dimension is normal. Atrial Septum Intact interatrial septum visualized by color flow imaging. Aortic Valve The aortic valve is trileaflet. There is mild to moderate aortic valve stenosis with a peak velocity of 254 cm/s, mean gradient of 15 mmHg, and aortic valve area of 1.7 cm2. There is trace aortic valve regurgitation. There is severe aortic valve calcification. Pulmonic Valve The pulmonic valve is normal. There is no pulmonic valve stenosis. There is trace pulmonic regurgitation. Mitral Valve There is no mitral valve stenosis. There is mild mitral valve regurgitation. The mitral valve annulus is mildly calcified. Tricuspid Valve The tricuspid valve leaflets are normal. There is no significant tricuspid valve stenosis. There is mild tricuspid valve regurgitation. Pericardium/Pleural The pericardium appears normal. There is no pericardial effusion. Inferior Vena Cava Normal inferior vena cava with >50% collapse upon inspiration consistent with normal right atrial pressure, 5 mmHg. Aorta The aortic root size at the sinus of Valsalva is normal. There is mild aortic atherosclerosis. Left Ventricular Outflow Tract Name Value Normal
--- NOTE | 2021-03-22 15:00 | PC.NURSE ---
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 Report received from ALEC Glass.
--- NOTE | 2021-03-22 15:29 | SUR.PHASEII ---
patient transferred to 232 . groin wnl dressing c/d/i no hematomata noted. doc imu rn at bedside. patient a/ox3
[2021-03-22] MEDS: LORATADINE 10 MG TABLET PO (15:35)
--- NOTE | 2021-03-22 16:02 | PM.TDS ---
Transfer Discharge Sum: Prov Provider Date of admission: 03/21/21 18:45 Primary care physician: Florentino Parker DO Admitting clinician: Rosana Campbell MD Consults: 03/20/21 Consult to Physician Routine Comment: Consulting Provider: Cathy Pimentel Reason for consultation: chest pain Has provider been notified: Yes DS: Admitting Diagnosis Discharge Date 03/22/21 Admitting Diagnosis NSTEMI DS: Discharge Diagnosis Discharge Diagnosis (1) Acute non-ST elevation myocardial infarction (NSTEMI): Code(s): I21.4 - Non-ST elevation (NSTEMI) myocardial infarction Status: Acute (2) Chest pain: Code(s): R07.9 - Chest pain, unspecified Status: Acute (3) Essential (primary) hypertension: Code(s): I10 - Essential (primary) hypertension Status: Chronic (4) Hyperlipidemia: Code(s): E78.5 - Hyperlipidemia, unspecified Status: Chronic (5) Aortic valve stenosis: Code(s): I35.0 - Nonrheumatic aortic (valve) stenosis Status: Acute (6) Type 2 diabetes mellitus without complications: Code(s): E11.9 - Type 2 diabetes mellitus without complications Status: Chronic Transfer Discharge Sum: Med Medications Active and Home Medications: Home Medications blood-glucose meter #1 each 08/09/19 [Rx Confirmed 03/20/21] blood sugar diagnostic #10 each 09/30/19 [History Confirmed 03/20/21] fluticasone propionate 50 mcg/actuation nasal spray,suspension 2 spray NASAL DAILY 09/30/19 [History Confirmed 03/20/21] lancets #50 each 09/30/19 [History Confirmed 03/20/21] empagliflozin 25 mg tablet 25 mg PO DAILY #90 tablet 06/01/20 [Rx Confirmed 03/20/21] fluticasone 250 mcg-salmeterol 50 mcg/dose blistr powdr for inhalation 1 inh INHALATION BID #180 ea 06/29/20 [Rx Confirmed 03/20/21] metformin 1,000 mg tablet 1,000 mg PO BID #180 tablet 01/26/21 [Rx Confirmed 03/20/21] simvastatin 20 mg tablet 20 mg PO DAILY #90 tablet 02/04/21 [Rx Confirmed 03/20/21] lisinopril 20 mg tablet 20 mg PO DAILY #90 tablet 03/07/21 [Rx Confirmed 03/20/21] Active Medications Aspirin (Aspirin 81 Mg Enteric Tablet) 81 mg PO QAM [facility] Last Admin: 03/22/21 08:47 Dose: 81 mg Documented by: Atorvastatin Calcium (Atorvastatin 40 Mg Tablet) 80 mg PO DAILY [facility] Last Admin: 03/22/21 08:47 Dose: 80 mg Documented by: Dextrose (Dextrose 50% 25 Gm/50 Ml Syringe) 12.5 gm IV PUSH PRN PRN; Protocol PRN Reason: Hypoglycemia Fluticasone Propionate (Fluticasone Propionate 0.05% Na Spr 16 Gm Btl (*Bkc)) 2 spray NASAL DAILY [facility] Last Admin: 03/22/21 08:47 Dose: 2 spray Documented by: Glucagon (Glucagon For Inj 1 Mg Vial) 1 mg IM PRN PRN; Protocol PRN Reason: Hypoglycemia Glucose (Glucose Oral Gel 15 Gm Of Glucse In 37.5 Gm Tube) 15 gm PO PRN PRN; Protocol PRN Reason: Hypoglycemia Heparin Sodium (Porcine) (Heparin Sodium 5,000 Units/Ml Vial) 4,000 units IV PUSH PRN PRN PRN Reason: aPTT less than 55 seconds Last Admin: 03/21/21 14:08 Dose: 4,000 units Documented by: Heparin Sodium (Porcine) (Heparin Sodium 5,000 Units/Ml Vial) 3,500 units IV PUSH PRN PRN PRN Reason: aPTT 55 - 70 seconds Last Admin: 03/22/21 11:23 Dose: 3,500 units Documented by: Heparin Sodium/Dextrose (Heparin Sodium/D5w 100 Units/Ml) 25,000 units in 250 mls @ 0 mls/hr IV CONT .Q0M [facility]; Protocol Last Titration: 03/22/21 12:40 Dose: 0 units/hr, 0 mls/hr Documented by: Dextrose (Dextrose 5% 1,000 Ml) 1,000 mls @ 100 mls/hr IVPB PRN PRN; Protocol PRN Reason: Hypoglycemia Sodium Chloride (Normal Saline Iv) 1,000 mls @ 125 mls/hr IV CONT .Q8H ONE Stop: 03/22/21 23:14 Insulin Aspart (Insulin Aspart (*Bkc) 100 Units/Ml) 2 - 5 units SUB-Q TIDWM [facility]; Protocol Last Admin: 03/22/21 12:08 Dose: Not Given Documented by: Lisinopril (Lisinopril 20 Mg Tablet) 20 mg PO DAILY [facility] Last Admin: 03/22/21 08:47 Dose: 20 mg Documented by: Loratadine (Loratadine 10 Mg Tablet) [facility] Last Admin: 03/22/21 15
[2021-03-22 17:00] LABS: Glucose Point of Care 178 mg/dl (65-105)
[2021-03-22 17:10] LABS: Partial Thromboplastin Time 27.4 SECONDS (22.3-36.8)
== END 2021-03-22 17:29 | disposition short-term general hospital (02) | DRG 282 ==
LOC: ANHED 14:25 → ANHIMU 16:59
PROVIDERS: Internal Medicine; Internal Medicine Cardiovascular Disease; Physician Assistant; Admitting Provider Family Medicine; Emergency Provider Emergency Medicine; PCP Internal Medicine; Visit Provider Family Medicine
PROC: 4A023N7 Measurement of Cardiac Sampling and Pressure, Left Heart, Percutaneous Approach (ICD-10-PCS; CPT 93452; principal; 2021-03-22 13:00)
PROC: 4A023N7 Measurement of Cardiac Sampling and Pressure, Left Heart, Percutaneous Approach (ICD-10-PCS; 2021-03-22 13:00)
DX: I21.4 Non-ST elevation (NSTEMI) myocardial infarction (principal); I25.10 Atherosclerotic heart disease of native coronary artery without angina pectoris; I10 Essential (primary) hypertension; E78.5 Hyperlipidemia, unspecified; I35.0 Nonrheumatic aortic (valve) stenosis; E11.9 Type 2 diabetes mellitus without complications; Z79.899 Other long term (current) drug therapy; Z87.891 Personal history of nicotine dependence; Z98.49 Cataract extraction status, unspecified eye; Z96.1 Presence of intraocular lens
CPT/HCPCS: 36415; 71046; 80048; 80061; 80076; 82948; 83036; 83735; 83880; 84484; 85025; 85610; 85730; 93005; 93306; 93458; 94640; 96365; 96366; 99291; A9270; C1760; C1887; C1894; G0269; G0378; J1644; J2250; J3010; J7040

== ENCOUNTER → 2022-07-19 08:08 | Outpatient (CLI) | payer OTHER, SELFPAY ==
--- NOTE | ~2022-07-19 | XR_ITS ---
EXAMINATION: XR chest 2V DATE: 07/19/2022 08:36 INDICATION: One month of cough TECHNIQUE: PA and lateral views of the chest were obtained. COMPARISON: Chest radiograph dated 03/20/2021 FINDINGS: Perihilar bronchial wall thickening without focal airspace opacities. No pleural effusion or pneumoth orax. Borderline heart size. Median sternotomy wires, ostial markers and mediastinal surgical clips c onsistent with prior coronary artery bypass grafting. IMPRESSION: 1. Perihilar bronchial wall thickening without full airspace opacities which could be seen with bronc hitis, reactive airway disease/asthma or minimal perihilar edema. 2. Borderline heart size. Reviewed, dictated and finalized at location D. [place] [employer] IMPRESSION: 1. Perihilar bronchial wall thickening without full airspace opacities which co uld be seen with bronchitis, reactive airway disease/asthma or minimal perihila r edema. 2. Borderline heart size.
== END ==
PROVIDERS: PCP Internal Medicine; Visit Provider Internal Medicine
DX: R05.9 Cough, unspecified (principal); J44.9 Chronic obstructive pulmonary disease, unspecified; Z87.891 Personal history of nicotine dependence; Z95.1 Presence of aortocoronary bypass graft; R91.8 Other nonspecific abnormal finding of lung field
CPT/HCPCS: 71046

== ENCOUNTER 2022-07-28 08:10 | Outpatient (CLI) | payer OTHER, SELFPAY ==
--- NOTE | ~2022-07-28 | CT_ITS ---
EXAMINATION:CT chest high resolution wo nv DATE: 07/28/2022 08:28 INDICATION: Abnormal chest radiographs. TECHNIQUE: Computed tomography (CT) of the chest was performed without intravenous contrast. Automate d exposure control and iterative reconstruction technique were employed. The dose-length product (DLP ) was 456.97 mGy-cm. COMPARISON: Chest 2 views 07/19/2022 FINDINGS: There is mild emphysema. There is mild scarring in paraspinal right lower lobe. Calcified b ilateral lung nodules are consistent with old granulomatous disease. There is mild dependent atelecta sis bilaterally. No pleural effusion. Cardiomegaly is noted. There are coronary artery calcifications . There are calcifications of aortic valve. There are changes of coronary artery bypass grafting. No pericardial effusion. There is diffuse hepatic steatosis. There is a 17 mm subcutaneous cyst in right anterolateral chest wall, likely a sebaceous cyst. There is a 2.3 cm subcutaneous cystic mass in the posterior thorax at the midline, likely a sebaceous cyst. There is a 5.1 x 2.2 cm subcutaneous lipom a in right posterior thorax. There is mild thoracic spondylosis. IMPRESSION: 1. Mild emphysema. 2. Diffuse hepatic steatosis. Reviewed, dictated and finalized at location A. R HAND
== END 2022-07-28 08:11 | disposition home or self-care (01) ==
PROVIDERS: PCP Internal Medicine; Visit Provider Internal Medicine
DX: R93.89 Abnormal findings on diagnostic imaging of other specified body structures (principal); J43.9 Emphysema, unspecified; K76.0 Fatty (change of) liver, not elsewhere classified
CPT/HCPCS: 71250

== ENCOUNTER 2022-09-28 08:55 | Outpatient (CLI) | payer OTHER, SELFPAY ==
--- NOTE | 2022-09-29 13:47 | P.PCNPFT_ITS ---
PFT Procedure Performed PFT Procedure Performed Spirometry with Pre/Post Bronchodilator Plethysmography (Lung Vol) Flow Vol Loop PFT Interpretation DOS: 09/28/2022 REQUESTING: Sy Tipton APRN REASON FOR TESTING: COPD PULMONARY FUNCTION TESTS Results are reliable and reproducible. Spirometry: Pre-bronchodilator FEV1 is 2.24 L, 66%, moderately reduced. Pre- bronchodilator FVC is 2.86 L, 65%, moderately reduced. FEV1/ FVC ratio is 78%, normal range. There is no airflow obstruction. After bronchodilator administration the FEV1 increases 4%, 2.33 L, 69%, remains decreased. After bronchodilator, the FVC increases 4%, 2.98 L, 67%, decreased. FEV1/FVC ratio 78%, normal. Lung volumes: Total lung capacity is 5.32 L, 76%, consistent with mild restriction. Residual volume 2.21 L, 93%, normal. RV/TLC 42%, upper limit normal. Airway resistance 3.70, 269%. Diffusion: This was not performed due to equipment malfunction. Flow volume loop: Normal. IMPRESSION: This study shows a mild restrictive pattern which is new compared to prior study, moderate ventilatory impairment without airflow obstruction, no response to bronchodilator; there is a trend toward air trapping. The RV/TLC is at the upper limits of normal. Diffusion was not performed due to equipment malfunction. Compared to a prior study on 01/12/2006, the patient also had a moderate decrease in FEV1 and FVC with a normal FEV1/FVC ratio which is seen on this study. There was a good response to bronchodilator. Total lung capacity was normal. The patient had an elevated residual volume consistent with air trapping. He had normal diffusion which was not measured today. Maricruz Gao MD
--- NOTE | 2022-09-29 15:54 | WPDSIXMINUTE ---
Six Minute Walk Procedure Procedure Performed Pulmonary Stress Test (6 min walk) Six Minute Walk Six Minute Walk: DOS: 09/28/2022 REQUESTING: Sy Tipton APRN REASON FOR TEST: COPD SIX MINUTE WALK This test was conducted per ATS guidelines. The patient was breathing room air during testing. Initial blood pressure was 169/99. Initial saturation was 92% and pulse was 78. The patient walked for 6 minutes without stopping, saturation minimum was 90%. Maximum pulse was 102. At the end of testing, saturation was 95% and the pulse was 81. Distance walked 1000 ft/ 304.8 m which is adequate for age. IMPRESSION: This is a normal Six Minute Walk study without need for supplemental oxygen with exertion. Distance walked is adequate for age.
== END 2022-09-28 08:56 | disposition home or self-care (01) ==
PROVIDERS: PCP Internal Medicine; Visit Provider Nurse Practitioner Family
DX: R06.09 Other forms of dyspnea (principal); J44.9 Chronic obstructive pulmonary disease, unspecified; R94.2 Abnormal results of pulmonary function studies
CPT/HCPCS: 94060; 94618; 94726

== ENCOUNTER 2022-10-24 12:01 | Observation (INO) | payer OTHER, SELFPAY ==
[2022-10-24] VITALS (17 sets, daily range): BP systolic 142–168; BP diastolic 78–88; PULSE 82–105; RESP 14–23; TEMP 36.1–36.4; O2SAT 92–99
--- NOTE | ~2022-10-24 | XR_ITS ---
EXAMINATION: XR chest 2V DATE: 10/24/2022 13:04 INDICATION: Shortness of breath. Cough. Left chest pain. TECHNIQUE: Frontal and lateral views of the chest were obtained. COMPARISON: Chest 2 views 07/19/2022 FINDINGS: The chest demonstrates clear lungs without pneumonia, pleural effusion, or pneumothorax. Th e heart size is normal. Median sternotomy wires and mediastinal surgical clips are seen, likely from prior coronary artery bypass grafting. IMPRESSION: 1. No acute cardiopulmonary disease. Reviewed, dictated and finalized at location A.
--- NOTE | 2022-10-24 12:18 | ECG_ITS ---
Measurements Intervals [place] Rate: 84 P: 47 MA: 144 QRS: -33 QRSD: 114 T: 202 QT: 392 QTc: 465 Interpretive Statements SINUS RHYTHM LEFT AXIS DEVIATION POSSIBLE LEFT ATRIAL ENLARGEMENT LEFT VENTRICULAR HYPERTROPHY AND ST-T CHANGE CONSIDER INFERIOR INFARCT, AGE INDETERMINATE ABNORMAL ECG COMPARED TO ECG 03/20/2021 14:57:09 NO SIGNIFICANT CHANGES Electronically Signed On 10-24-2022 12:46:52 CDT by Adolfo Banks D.O.
[2022-10-24 12:58] LABS: Basophils Absolute Auto 0.1 K/mm3 (0.0-0.1); Basophils Percent Auto 0.7 % (0.2-1.2); Eosinophils Absolute Auto 0.3 K/mm3 (0-0.3); Eosinophils Percent Auto 3.3 % (0-4.4); Hematocrit 39.6 % (42.0-52.0); Hemoglobin 12.5 g/dL (14.0-18.0); Immature Granulocyte Absolute 0.03 K/mm3 (0.00-0.031); Immature Granulocyte Percent A 0.3 % (0-0.5); Lymphocytes Absolute Auto 2.65 K/mm3 (0.9-3.2); Lymphocytes Percent Auto 29.1 % (18.3-44.2); Mean Corpuscular HGB Conc 31.6 g/dl (32-36); Mean Corpuscular Hemoglobin 28.8 pg (26-34); Mean Corpuscular Volume 91.2 fl (80-100); Mean Platelet Volume 10.3 fl (7.4-10.4); Monocytes Percent Auto 10.7 % (2.6-8.5); Neutrophils Absolute Auto 5.1 K/mm3 (1.3-6.7); Neutrophils Percent Auto 55.9 % (45.5-73.1); Platelet Count Result 317 k/mm3 (150-375); Red Blood Count 4.34 M/mm3 (4.6-6.20); Red Cell Distribution Width 13.8 % (11.5-14.5); White Blood Count 9.1 K/mm3 (4.5-10.0)
[2022-10-24 13:14] LABS: Alanine Aminotransferase 37 U/L (6-50); Albumin Level 4.5 g/dL (3.5-5.1); Alkaline Phosphatase 72 U/L (38-126); Anion Gap 9 mmol/L (8-16); Aspartate Amino Transferase 33 U/L (17-59); Bilirubin,Total 0.5 mg/dL (0.2-1.3); Blood Urea Nitrogen 14 mg/dL (9-20); Calcium 9.4 mg/dL (8.4-10.2); Carbon Dioxide 34 mmol/L (22-30); Chloride 100 mmol/L (98-107); Estimated CRCL calculation 97 ml/min; Estimated Glomerular Filt Rate > 60; Glucose 153 mg/dL (65-110); Potassium 3.5 mmol/L (3.4-5.0); Sodium 143 mmol/L (137-145)
--- NOTE | 2022-10-24 13:19 | ED.SOB ---
HPI - SOB/Dyspnea General Chief Complaint: Shortness of Breath/Dyspnea Stated Complaint: cough/sob Time Seen by Provider: 10/24/22 12:33 History of Present Illness HPI Narrative: Patient is a 67-year-old male with a history of hypertension, CAD, hyperlipidemia, diabetes, hypothyroidism presenting with cough and shortness of breath. Patient states that for the last week he has had a persistent cough. States that he has been feeling short of breath especially with exertion and lying flat. States that for the last several days he has had to move to the couch to sleep comfortably. States that laying flat makes him feel like he needs to cough. States that he has had some intermittent left-sided chest pain with exertion. States that he felt lightheaded earlier today. Denies headaches, fevers or chills, focal numbness or weakness, palpitations, abdominal pain, nausea or vomiting, diarrhea, dysuria, leg swelling. Related Data Home Medications Medication Instructions Recorded Confirmed aspirin 81 mg tablet,delayed 81 mg PO HS 03/30/21 10/24/22 release atorvastatin 80 mg tablet 80 mg PO HS 03/30/21 10/24/22 Allergies Allergy/AdvReac Type Severity Reaction Status Date / Time No Known Allergies Allergy Verified 09/30/22 09:44 Review of Systems Review of Systems: All systems reviewed & are unremarkable except as noted in HPI and below PMFSH Past Medical History Medical History Aortic valve stenosis Echocardiogram on 05/19/2020 showed [id number] aortic valve stenosis with a valve area of 1.6 centimeters sq. COPD (chronic obstructive pulmonary disease) Depression with anxiety Essential (primary) hypertension Former smoker History of colon polyps History of skin cancer Hyperlipidemia Type 2 diabetes mellitus without complications Hemoglobin A1c was 6.4% on 10/15/2020. Surgical History Surgical History H/O nasal polypectomy History of arthroscopy of both knees History of cataract extraction with lens replacement History of colonoscopy with polypectomy History of removal of pigmented skin lesion History of sinus surgery History of tonsillectomy Hx of cardiac cath Family History Family History Father Cerebrovascular accident Mother Patient's mother is Diabetes mellitus Heart disease Hypertension Social History Social History Social History: Surrogate decision maker: Kellie Carrera, . 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 Smoking packs per day: 2 Smoking cigarettes per day: 40.0 Years smoked: 30 Smoking pack-years: 60.00 Smoking status: Former smoker Tobacco type: cigarettes Second hand tobacco smoke exposure: No Smoking end date: 06/19/10 Alcohol intake: current Drinks per week: 18 Substance use: never Lack of Transportation: No Lack of Food: Never True Current Housing: I Have Housing Concerned About Future Housing: No Difficulty Paying Gas/Electric Bills: No Difficulty Paying for Meds: No Currently Unemployed: No Education: High School Diploma/GED Difficulty w/ Childcare or Family Care: No Living arrangements: with family Occupation/Education: retired Spiritual care concerns: No Exam Narrative: GENERAL: Well-appearing, well-nourished, and in no acute distress. HEAD: Normocephalic, atraumatic. EYES: PERRLA and EOMI. ENT: Nares clear, no rhinorrhea or epistaxis. Mucous membranes moist. NECK: Supple. CHEST: Clear to auscultation. No respiratory distress. HEART: Regular rate and rhythm. No murmur heard. Normal peripheral pulses. ABDOMEN: Soft, nontender, nondistended EXTREMITIES: Normal range of motion. No edema. SKIN: Warm, dry, no rash. NEURO: No focal deficits. Alert and oriented x3. PSYCH: Norm
[2022-10-24 13:51] LABS: INR 0.9; Partial Thromboplastin Time 31.9 SECONDS (22.3-36.8); Prothrombin Time 12.7 Seconds (11.1-14.7)
[2022-10-24 14:02] LABS: NT Pro B Type Natriuretic Pept 553 pg/mL (19.9-100); Troponin I 0.269 ng/mL (0.000-0.034)
[2022-10-24 14:21] LABS: Influenza A QL RT-PCR Negative (Negative); Influenza B QL RT-PCR Negative (Negative); RSV RNA, RT-PCR Negative (Negative); SARS-CoV-2 RNA PCR Negative (Negative)
[2022-10-24] MEDS: LEVALBUTEROL NEB 1.25 MG/3 ML INHALATION (14:48)
[2022-10-24] MEDS: IPRATROPIUM BR 0.02% INH SOLN 0.5 MG/2.5 ML VIAL INHALATION ×2 (14:48→20:10)
[2022-10-24] MEDS: ASPIRIN 81 MG CHEWABLE TABLET 324 MG PO (15:05)
--- NOTE | 2022-10-24 15:33 | PM.IMHP ---
H&P: HPI History of Present Illness Date/Time: 10/24/22 15:33 Chief Complaint: Chest pain/shortness of breath Narrative: This is a 67-year-old male patient has a history of coronary artery disease with 1 CABG, hypertension, diabetes, hypothyroidism and hyperlipidemia. The patient presented to the emergency room with shortness of breath. The patient had a persistent cough for the last week. The patient has been feeling short of breath especially with exertion and lying flat. The patient is not able to sleep comfortably in bed and has had to sleep on the couch. He felt lightheaded earlier today. He denied any fever chills or any nausea vomiting. No numbness or tingling or palpitations. No increased leg swelling. His H&H is 12.5 and 39.6. His blood sugars 153. Troponin 0.269 and 0.249. BNP was 553. The patient is negative for influenza A/B RSV and COVID. Chest x-ray was read as no acute cardiopulmonary disease. The patient was given an aspirin and nebulizer treatments. Cardiology has been consulted. The patient is being admitted to observation status on the date of service of 10/24/2022 Review of Systems Review of Systems: All systems reviewed & are unremarkable except as noted in HPI and below Constitutional: Constitutional: Reports as per HPI and Reports no additional constitutional complaints Eyes: Eyes: Reports as per HPI and Reports no additional eye complaints ENT: Reports system reviewed and no additional complaints, except as documented and Reports Normal hearing present Cardiovascular: Cardiovascular: Reports no additional cardiovascular complaints Respiratory: Respiratory: Reports no additional respiratory complaints and Reports no additional respiratory complaints Gastrointestinal: Gastrointestinal: Reports as per HPI and Reports no additional gastrointestinal complaints Musculoskeletal: Musculoskeletal: Reports no additional musculoskeletal complaints Integumentary/Breasts: Skin/Breast: Reports system reviewed and no additional complaints, except as docu and Reports as per HPI Neurologic: Reports system reviewed and no additional complaints, except as documented, Reports as per HPI and Reports Normal hearing present Psychiatric: Psychiatric: Reports no additional psychiatric complaints and Reports as per HPI Endocrine: Endocrine: Reports no additional endocrine complaints Hematologic/Lymphatic: Hematologic/Lymphatic: Reports no additional hematologic/lymphatic complaints Allergic/Immunologic: Allergic/Immunologic: Reports no additional allergic/immunologic complaints [facility] Past Medical History Medical History (Updated 10/24/22 @ 19:36 by Skye A. Benhoff, [employer]) Aortic valve stenosis Echocardiogram on 05/19/2020 showed [id number] aortic valve stenosis with a valve area of 1.6 centimeters sq. COPD (chronic obstructive pulmonary disease) Depression with anxiety Essential (primary) hypertension Former smoker History of colon polyps History of skin cancer Hyperlipidemia Type 2 diabetes mellitus without complications Hemoglobin A1c was 6.4% on 10/15/2020. Surgical History Surgical History (Updated 10/24/22 @ 19:13 by Skye Dupree NP) H/O nasal polypectomy History of arthroscopy of both knees History of cataract extraction with lens replacement History of colonoscopy with polypectomy History of removal of pigmented skin lesion History of sinus surgery History of tonsillectomy Hx of cardiac cath Family History Family History Father Cerebrovascular accident Mother Patient's mother is Diabetes mellitus Heart disease Hypertension Social History Social History Social History: Surrogate decision maker: Kellie Carrera, . 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 Smoking packs per day: 2 Smoking cigarettes per day: 40.0 Years smoked:
[2022-10-24 17:17] LABS: Troponin I 0.249 ng/mL (0.000-0.034)
--- NOTE | 2022-10-24 18:20 | ADMGEN ---
This patient, Adonay Carrera Jr., was admitted to IMU Room 212-01 at 1650. Patient/family oriented to hospital policies and general routines including ID bracelet, bed and alarms, visiting hours, pain management, procedures, bathroom and other care routines, personal items, smoking policy, room service/diet, and visiting hours. Information on how to activate the Rapid Response Team has been discussed. Patient/Family are encouraged to report perceived risks to care and to ask questions if they do not understand what they are told or what they should do.
[2022-10-24 19:51] LABS: Troponin I 0.212 ng/mL (0.000-0.034)
[2022-10-24] MEDS: LEVALBUTEROL NEB 1.25 MG/3 ML 0.63 MG INHALATION (20:10)
[2022-10-24] MEDS: FLUTICASONE/SALMETEROL 115-21 MCG INHALER 1 PUFF 2 PUFF INHALATION (20:10)
[2022-10-24 20:41] LABS: Glucose Point of Care 201 mg/dl (65-105)
[2022-10-24] MEDS: INSULIN ASPART (*BKC) 100 UNITS/ML SUB-Q (21:04)
[2022-10-24] MEDS: ASPIRIN 81 MG ENTERIC TABLET PO (21:04)
[2022-10-24] MEDS: METOPROLOL TARTRATE 12.5 MG TABLET PO (21:05)
[2022-10-24] MEDS: ATORVASTATIN 40 MG TABLET 80 MG PO (21:09)
[2022-10-24] MEDS: methylPREDNISolone SOD SUCC 125 MG VIAL 80 MG IV PUSH (21:10)
[2022-10-24] MEDS: HYDROcodone/acetaminophen (*CRX) 5-325 MG TABLET 1 TAB PO (22:14)
[2022-10-25] VITALS (13 sets, daily range): BP systolic 156–163; BP diastolic 83–96; PULSE 81–100; RESP 20; TEMP 36.3–36.8; O2SAT 92–95
[2022-10-25] MEDS: guaiFENesin/DEXTROMETHORPHAN 10 ML UDC PO ×2 (01:02→09:21)
[2022-10-25 04:56] LABS: Basophils Percent Auto 0.3 % (0.2-1.2); Hematocrit 39.3 % (42.0-52.0); Hemoglobin 12.3 g/dL (14.0-18.0); Immature Granulocyte Absolute 0.04 K/mm3 (0.00-0.031); Immature Granulocyte Percent A 0.5 % (0-0.5); Lymphocytes Absolute Auto 0.87 K/mm3 (0.9-3.2); Lymphocytes Percent Auto 11.2 % (18.3-44.2); Mean Corpuscular HGB Conc 31.3 g/dl (32-36); Mean Corpuscular Hemoglobin 28.5 pg (26-34); Mean Platelet Volume 10.5 fl (7.4-10.4); Monocytes Absolute Auto 0.1 K/mm3 (0.1-0.6); Monocytes Percent Auto 1.5 % (2.6-8.5); Neutrophils Absolute Auto 6.8 K/mm3 (1.3-6.7); Neutrophils Percent Auto 86.5 % (45.5-73.1); Platelet Count Result 345 k/mm3 (150-375); Red Blood Count 4.32 M/mm3 (4.6-6.20); Red Cell Distribution Width 13.7 % (11.5-14.5); White Blood Count 7.8 K/mm3 (4.5-10.0)
[2022-10-25 05:06] LABS: Lactic Acid Reflex 1.2 mmol/L (0.7-2.0)
[2022-10-25 05:12] LABS: Magnesium 2.1 mg/dL (1.6-2.3)
[2022-10-25 05:29] LABS: Hemoglobin A1C 6.6 % (<5.7)
[2022-10-25] MEDS: methylPREDNISolone SOD SUCC 125 MG VIAL 80 MG IV PUSH (05:49)
[2022-10-25 06:18] LABS: Thyroid Stimulating Hormone Reflex 0.249 uIU/mL (0.465-4.68)
[2022-10-25 08:17] LABS: Glucose Point of Care 223 mg/dl (65-105)
[2022-10-25 08:32] LABS: Free T4 Free Thyroxine Reflex 1.19 ng/dL (0.78-2.19)
[2022-10-25] MEDS: METOPROLOL TARTRATE 12.5 MG TABLET PO (09:22)
[2022-10-25] MEDS: ENOXAPARIN 40 MG/0.4 ML SYRINGE SUB-Q (09:22)
[2022-10-25] MEDS: LOSARTAN POTASSIUM 12.5 MG TABLET BY MOUTH (09:23)
[2022-10-25] MEDS: glyBURIDE 2.5 MG TABLET PO (09:24)
[2022-10-25] MEDS: INSULIN ASPART (*BKC) 100 UNITS/ML SUB-Q (09:27)
[2022-10-25 09:33] LABS: Total Triiodothyronine (T3) 1.14 NG/ML (0.97-1.69)
[2022-10-25] MEDS: LEVALBUTEROL NEB 1.25 MG/3 ML 0.63 MG INHALATION ×2 (10:20→13:07)
[2022-10-25] MEDS: IPRATROPIUM BR 0.02% INH SOLN 0.5 MG/2.5 ML VIAL INHALATION ×2 (10:20→13:07)
[2022-10-25] MEDS: FLUTICASONE/SALMETEROL 115-21 MCG INHALER 1 PUFF 2 PUFF INHALATION (10:20)
--- NOTE | 2022-10-25 11:23 | PM.CNCAR ---
Assessment and Plan Assessment and plan (1) Shortness of breath: Code(s): R06.02 - Shortness of breath Status: Acute (2) Chest pain: Code(s): R07.9 - Chest pain, unspecified Status: Acute (3) COPD (chronic obstructive pulmonary disease): Code(s): J44.9 - Chronic obstructive pulmonary disease, unspecified Status: Acute (4) Elevated troponin: Code(s): R77.8 - Other specified abnormalities of plasma proteins Status: Acute (5) Obesity, Class I, BMI 30-34.9: Code(s): E66.9 - Obesity, unspecified Status: Acute (6) Coronary artery disease: Code(s): I25.10 - Atherosclerotic heart disease of [place] coronary artery without angina pectoris Status: Acute (7) S/P CABG x 1: Code(s): Z95.1 - Presence of aortocoronary bypass graft Status: Acute (8) Essential (primary) hypertension: Code(s): I10 - Essential (primary) hypertension Status: Chronic Plan Patient presents with exertional shortness of breath that has been occurring since August per the patient. Has very atypical chest pain (left-sided pinpoint twinge that lasts for a few seconds and then self-resolves). Patient states that these current symptoms are completely different than his NSTEMI from 2020. Patient had a recent echocardiogram with our office in 09/2022 that showed LVEF 50-55% with hypokinetic basal inferior and mid inferior segments, mild LVH, moderate . EKG on admission show sinus rhythm, LVH with secondary changes, no changes compared to prior EKG. His troponins are mildly elevated but flat 0.269 --> 0.249 --> 0.212 Patient was noted to be wheezing on admission, and was started on breathing treatments and Solumedrol by the primary team. Patient states the breathing treatments have made him feel better. His BNP also elevated on admission at 553, however, clinically does not appear to be in heart failure. I discussed stress testing with the patient today, and had recommended stress test that we could get done today. However, patient states that he would prefer to do it as an outpatient with Dr. Smith instead. He states that he would not want to get cardiac cath done here at [facility] anyways due to our limited cath lab radiology technician capabilities (as patient had to be transferred to [facility] last time). Patient states that he would prefer to go home and follow up as an outpatient with Dr. Smith. Return precautions were discussed with the patient, and patient states that if he does feel like he needs to come back to the hospital, he will go to [facility] since that is where Dr. Smith sees patients and in case he does need any intervention again. Recommend to continue ASA 81mg, Atorvastatin 80mg. His blood pressures have been elevated. Will increase his home Losartan to 25mg QD. Will uptitrate antianginal therapy. Increase Metoprolol 12.5mg BID to 25mg BID. Will arrange outpatient follow up with Dr. Smith. Recommendations/plan discussed with Hospitalist, Dr. Aguirre. History of Present Illness History of Present Illness Consult date/time: 10/25/22 11:23 Requesting physician: Skye Dupree NP Consult reason: shortness of breath Reason For Visit: Chest Pain Narrative: We are consulted for shortness of breath, chest pain. This is a 67-year-old male who follows with Dr. Smith in the office, last saw him in clinic in 06/2022. He has a history of CAD, diabetes, hypertension, hyperlipidemia, history of pericarditis 20 years ago, history of remote smoking. Had presented to [facility] 03/20/2021 with chest pain with peak troponin of 1.2. Underwent cardiac cath which showed minimal irregularities in the left main, calcification in proximal LAD, 20% stenosis in diagonal branch, distal LCX 50% stenosis, and 90% ostial and mid RCA. RCA was heavily calcified. At that time, patient was transferred to [facility] for high risk intervention to the RCA. Complex intervention was done on t
[2022-10-25 12:34] LABS: Glucose Point of Care 419 mg/dl (65-105)
--- NOTE | 2022-10-25 12:40 | PM.DS ---
DS: Admitting Diagnosis Discharge Date 10/25/2022 Admitting Diagnosis Shortness of breath/cough DS: Discharge Diagnosis Discharge Diagnosis (1) Elevated troponin: Code(s): R77.8 - Other specified abnormalities of plasma proteins Status: Acute (2) COPD (chronic obstructive pulmonary disease): Code(s): J44.9 - Chronic obstructive pulmonary disease, unspecified Status: Acute (3) Type 2 diabetes mellitus without complications: Code(s): E11.9 - Type 2 diabetes mellitus without complications Status: Chronic (4) Essential (primary) hypertension: Code(s): I10 - Essential (primary) hypertension Status: Chronic (5) Hyperlipidemia: Code(s): E78.5 - Hyperlipidemia, unspecified Status: Chronic (6) Aortic valve stenosis: Code(s): I35.0 - Nonrheumatic aortic (valve) stenosis Status: Acute (7) Depression with anxiety: Code(s): F41.8 - Other specified anxiety disorders Status: Acute DS: Summary Hospital Course Hospital Course: This is a 67-year-old male patient has a history of coronary artery disease with 1 CABG, hypertension, diabetes, hypothyroidism and hyperlipidemia.? The patient presented to the emergency room with shortness of breath.? The patient had a persistent cough for the last week.? The patient has been feeling short of breath especially with exertion and lying flat.? The patient is not able to sleep comfortably in bed and has had to sleep on the couch.? He felt lightheaded earlier today.? He denied any fever chills or any nausea vomiting.? No numbness or tingling or palpitations.? No increased leg swelling.? His H&H is 12.5 and 39.6.? His blood sugars 153.? Troponin 0.269 and 0.249.? BNP was 553.? The patient is negative for influenza A/B RSV and COVID.? Chest x-ray was read as no acute cardiopulmonary disease.? The patient was given an aspirin and nebulizer treatments.? Cardiology has been consulted.? The patient is being admitted to observation status on the date of service of 10/24/2022 # elevated troponin: Patient's troponins are flat serial. Cardiology has been consulted The patient complains of shortness of breath when laying flat. The patient had an echo . Complete two-dimensional, color flow and Doppler transthoracic echocardiogram is performed. ? 2. Strain analysis performed. ? 3. Left ventricular chamber dimension is normal. ? 4. Left ventricular systolic function is normal, estimated at 55-60%. ? 5. There is moderately increased left ventricular wall thickness. ? 6. The left ventricular diastolic function is grade I diastolic dysfunction. ? 7. Global longitudinal strain is abnormal at -11 %. ? 8. The inferior wall is hypokinetic. ? 9. Left atrial chamber dimension is mildly enlarged. ? 10. There is mild to moderate aortic valve stenosis with a peak velocity of 254 cm/s, mean gradient of 15 mmHg, and aortic valve area of 1.7 cm2. ? 11. There is severe aortic valve calcification. ? 12. There is mild mitral valve regurgitation. ? 13. There is mild tricuspid valve regurgitation. The patient stated he had a recent echo which showed EF of 55% with hypokinetic basal inferior and mid inferior segments mild LVH and moderate he has stress test was recommended my staff weapons officer however patient preferred to be done as an out patient basis and to follow up with his regular staff weapons officer Continue with aspirin, atorvastatin, losartan, and metoprolol, dose adjustment were made for his metoprolol and losartan # COPD with acute exacerbation: The patient is wheezing so was started on Solu-Medrol with improvement in his symptoms. Continue with nebulizer treatments. The patient had a recent PFT This study shows a mild restrictive pattern which is new compared to prior study, moderate ventilatory impairment without airflow obstruction, no response to bronchodilator;? there is a trend toward air trapping.? The RV/TLC is at the upper limits of normal.? Dif
[2022-10-25] MEDS: INSULIN ASPART (*BKC) 100 UNITS/ML 6 UNITS SUB-Q (12:50)
[2022-10-25 13:51] LABS: Glucose Point of Care 385 mg/dl (65-105)
[2022-10-25] MEDS: methylPREDNISolone SOD SUCC 40 MG VIAL IV PUSH (14:50)
== END 2022-10-25 15:07 | disposition home or self-care (01) ==
LOC: ANHED 13:06 → ANHIMU 15:49
PROVIDERS: Nurse Practitioner; Preventive Medicine Aerospace Medicine; Admitting Provider Internal Medicine; Emergency Provider Emergency Medicine; PCP Internal Medicine; Referring Provider Nurse Practitioner Family; Visit Provider Internal Medicine
DX: R77.8 Other specified abnormalities of plasma proteins (principal); J44.9 Chronic obstructive pulmonary disease, unspecified; E11.9 Type 2 diabetes mellitus without complications; I10 Essential (primary) hypertension; E78.5 Hyperlipidemia, unspecified; I35.0 Nonrheumatic aortic (valve) stenosis; F41.8 Other specified anxiety disorders; R07.9 Chest pain, unspecified; E66.9 Obesity, unspecified; Z20.822 Contact with and (suspected) exposure to COVID-19; Z68.32 Body mass index [BMI] 32.0-32.9, adult; I25.10 Atherosclerotic heart disease of native coronary artery without angina pectoris; Z95.1 Presence of aortocoronary bypass graft; R05.9 Cough, unspecified; E03.9 Hypothyroidism, unspecified; R42 Dizziness and giddiness; R94.31 Abnormal electrocardiogram [ECG] [EKG]; Z87.891 Personal history of nicotine dependence; Z79.82 Long term (current) use of aspirin; Z79.899 Other long term (current) drug therapy; F10.90 Alcohol use, unspecified, uncomplicated; Z83.3 Family history of diabetes mellitus; Z82.49 Family history of ischemic heart disease and other diseases of the circulatory system
CPT/HCPCS: 36415; 71046; 80053; 82948; 83036; 83605; 83735; 83880; 84439; 84443; 84480; 84484; 85025; 85610; 85730; 87637; 93005; 94640; 96372; 96374; 96376; 99285; A9270; G0378; J1650; J1815; J2920; J2930

== ENCOUNTER → 2023-01-30 10:40 | Outpatient (CLI) | payer OTHER, SELFPAY ==
--- NOTE | ~2023-01-30 | XR_ITS ---
EXAMINATION: XR chest 2V DATE: 01/30/2023 10:58 INDICATION: Dyspnea TECHNIQUE: frontal and lateral views of the chest were obtained. COMPARISON: Chest radiograph dated 10/24/2022 FINDINGS: The lungs remain clear with no focal airspace opacities, pulmonary edema, pleural effusion or pneumot horax. Heart size is normal. Median sternotomy wires and mediastinal surgical clips are seen, likely from prior coronary artery bypass grafting. Mild thoracic spondylosis. IMPRESSION: 1. No acute cardiopulmonary disease. Reviewed, dictated and finalized at location A.
== END ==
PROVIDERS: PCP Internal Medicine
DX: R06.00 Dyspnea, unspecified (principal)
CPT/HCPCS: 71046

== ENCOUNTER → 2023-02-15 11:52 | Outpatient (CLI) | payer OTHER, SELFPAY ==
--- NOTE | ~2023-02-15 | CT_ITS ---
CT Scan of the Chest without Contrast: Clinical Indication: Lung cancer screening, personal history of nicotine dependence Technique: Contiguous sections were acquired throughout the chest without intravenous contrast. Dose reduction technique was used on this scan by utilizing automated exposure control and iterative recon struction technique. The dose-length product (DLP) was 234.12 mGy-cm. COMPARISON: 07/28/2022 Findings: There is no evidence of any significant mediastinal, hilar or axillary lymphadenopathy. There are ath erosclerotic ossifications of the aorta and coronary arteries. There is no evidence of pleural or pericardial effusion. There is patchy right basilar consolidation which could reflect atelectasis or pneumonia. No pulmonar y nodule evident otherwise. Images through the upper abdomen reveal no abnormalities. Impression: Lung RADS 1S: Negative. 12 month follow-up screening CT advised. Patchy right basilar consolidation could reflect atelectasis versus pneumonia. Correlate with patient 's symptomatology. Consider short-term follow-up CT to assess for resolution of airspace disease, as indicated. Reviewed, dictated and finalized at [facility]. Impression: Lung RADS 1S: Negative. 12 month follow-up screening CT advised. Patchy right basilar consolidation could reflect atelectasis versus pneumonia. Correlate with patient's symptomatology. Consider short-term follow-up CT to as sess for resolution of airspace disease, as indicated.
== END ==
PROVIDERS: PCP Internal Medicine
DX: Z12.2 Encounter for screening for malignant neoplasm of respiratory organs (principal); Z87.891 Personal history of nicotine dependence
CPT/HCPCS: 71271